=== PATIENT | female | born 1940 | race Caucasian/White ===

== ENCOUNTER 2022-09-22 15:10 | Inpatient (IN) | payer OTHER, MEDICARE ==
[~2022-09-22] VITALS: Ht 165.1 cm; Wt 71.7 kg
[~2022-09-22 15:10] MED LIST: ACET325T PO; APIX2.5T PO; ASCO500T20 PO; CELE100C PO; DILT180C67 PO; FURO-150 PO; IPRA3AMP9 INH; LACT10PA5 PO; LEVO-62 PO; MIDO5TAB4 PO; MULT-1117 PO; PANT40TA45 PO; PRED5TAB PO; VITD2000 PO
[2022-09-22 15:26] VITALS: BP_SYST 107; PULSE 83; RESP 20; TEMP 98.3; O2SAT 98
[2022-09-22] MEDS ORDERED: BENZONATATE 100 MG CAPSULE (TESSALON) PO ONE (16:45)
[2022-09-22] MEDS ORDERED: guaiFENesin/DEXTROMETHORPHAN 10 ML UDC PO ONE (16:45)
[2022-09-22 17:28] LABS: BASOPHILS % (AUTO) 0.2 % (0.0-2.0); EOSINOPHILS # (AUTO) 0.3 K/uL (0.0-0.4); EOSINOPHILS % (AUTO) 3.6 % (0.0-4.0); HEMATOCRIT 38.7 % (36-48); HEMOGLOBIN 12.7 g/dL (12.0-16.0); LYMPHOCYTES # (AUTO) 1.2 K/uL (1.0-5.5); LYMPHOCYTES % (AUTO) 14.3 % (20.5-51.5); MEAN CORPUSCULAR HEMOGLOBIN 34 pg (27-31); MEAN CORPUSCULAR HGB CONC 33 % (32-36); MEAN CORPUSCULAR VOLUME 102 fL (79.0-98.0); MONOCYTES % (AUTO) 11.7 % (1.7-9.3); NEUTROPHILS # (AUTO) 6.1 K/uL (1.8-7.7); NEUTROPHILS % (AUTO) 70.2 % (40.0-70.0); PLATELET COUNT (AUTO) 310 K/uL (130-430); RED BLOOD CELL COUNT(AUTO) 3.78 MIL/uL (4.2-6.2); RED CELL DISTRIBUTION WIDTH 13.7 % (9.0-15.0); WHITE BLOOD COUNT (AUTO) 8.6 K/uL (4.8-10.8)
[2022-09-22 17:41] LABS: INR 1.1 (0.8-1.2); PROTHROMBIN TIME 11.2 SECS (9.5-12.5)
[2022-09-22 17:42] LABS: ALANINE AMINOTRANSFERASE 21 U/L (12-78); ALBUMIN 3.4 g/dL (3.4-4.8); ANION GAP 6 (5-15); ASPARTATE AMINOTRANSFERASE 16 U/L (10-37); CHLORIDE 98 mmol/L (98-107); CREATININE 0.63 mg/dL (0.55-1.30); GLUCOSE 117 mg/dL (74-106); TOTAL BILIRUBIN 0.7 mg/dL (0.0-1.0); UREA NITROGEN, BLOOD 20 mg/dL (8-21)
[2022-09-22 18:01] LABS: BILIRUBIN,URINE NEGATIVE (NEGATIVE); BLOOD, URINE NEGATIVE (NEGATIVE); CLARITY/URINE CLEAR (CLEAR); COLOR,URINE YELLOW (YELLOW); GLUCOSE,URINE NEGATIVE (NEGATIVE); KETONES,URINE NEGATIVE (NEGATIVE); LEUKOCYTE ESTERASE ,URINE NEGATIVE (NEGATIVE); NITRITE, URINE NEGATIVE (NEGATIVE); PROTEIN URINE NEGATIVE (NEGATIVE); UROBILINOGEN,URINE 0.2 (0.2-1.0)
[2022-09-22] MEDS ORDERED: LIP10 PO (20:46)
[2022-09-22] MEDS ORDERED: POTA-195 PO (20:46)
[2022-09-22] MEDS ORDERED: LOSA25TA3 PO (20:46)
[2022-09-22] MEDS ORDERED: IPRA4AER INH (20:46)
[2022-09-22] MEDS ORDERED: ALBU1.257 IH (20:46)
[2022-09-22] MEDS ORDERED: ONDANSETRON HCL 4 MG/2 ML VIAL IVP PRN (23:15)
[2022-09-22] MEDS ORDERED: IPRATROPIUM BROM 0.5 MG/2.5 ML VIAL.NEB (ATROVENT) INH PRN (23:15)
[2022-09-22] MEDS ORDERED: LORazepam 2 MG/ML VIAL IVP PRN (23:15)
[2022-09-22] MEDS ORDERED: ACETAMINOPHEN 325 MG TABLET PO PRN (23:15)
[2022-09-22] MEDS ORDERED: HYDROcodone/ACETAMIN 5-325 MG TAB (NORCO/ VICODIN) PO PRN (23:15)
[2022-09-22] MEDS ORDERED: NALOXONE HCL 0.4 MG/ML AMP (NARCAN) IVP PRN ×2 (23:15)
[2022-09-22] MEDS ORDERED: HYDROcodone/ACETAMIN 10-325 MG TAB PO PRN (23:15)
[2022-09-22] MEDS ORDERED: ACETAMINOPHEN 325 MG TABLET PO SCH (23:15)
[2022-09-22] MEDS ORDERED: ALBUTEROL SULFATE 0.083% 2.5 MG/3 ML VIAL.NEB INH PRN (23:15)
[2022-09-22] MEDS ORDERED: levoFLOXacin 500 MG TABLET PO ONE (23:30)
[2022-09-22] MEDS ORDERED: guaiFENesin 200 MG/10 ML UDC PO ONE (23:45)
[2022-09-23] VITALS (10 sets, daily range): BP systolic 134–159; PULSE 72–93; RESP 16–19; TEMP 97.3–98.4; O2SAT 97–99
[2022-09-23 06:20] LABS: BASOPHILS % (AUTO) 0.1 % (0.0-2.0); EOSINOPHILS # (AUTO) 0.4 K/uL (0.0-0.4); EOSINOPHILS % (AUTO) 4.5 % (0.0-4.0); HEMATOCRIT 36.7 % (36-48); HEMOGLOBIN 12.2 g/dL (12.0-16.0); LYMPHOCYTES # (AUTO) 1.3 K/uL (1.0-5.5); LYMPHOCYTES % (AUTO) 16.4 % (20.5-51.5); MEAN CORPUSCULAR HEMOGLOBIN 34 pg (27-31); MEAN CORPUSCULAR HGB CONC 33 % (32-36); MEAN CORPUSCULAR VOLUME 103 fL (79.0-98.0); MONOCYTES # (AUTO) 1.1 K/uL (0.0-1.0); MONOCYTES % (AUTO) 13.8 % (1.7-9.3); NEUTROPHILS # (AUTO) 5.1 K/uL (1.8-7.7); NEUTROPHILS % (AUTO) 65.2 % (40.0-70.0); PLATELET COUNT (AUTO) 268 K/uL (130-430); RED BLOOD CELL COUNT(AUTO) 3.56 MIL/uL (4.2-6.2); RED CELL DISTRIBUTION WIDTH 13.5 % (9.0-15.0); WHITE BLOOD COUNT (AUTO) 7.9 K/uL (4.8-10.8)
[2022-09-23] MEDS: NORMAL SALINE 5 ML DISP.SYRIN IVF SCH ×3 (06:41→22:18)
[2022-09-23 06:43] LABS: ANION GAP 6 (5-15); CHLORIDE 99 mmol/L (98-107); CREATININE 0.44 mg/dL (0.55-1.30); GLUCOSE 100 mg/dL (74-106); UREA NITROGEN, BLOOD 10 mg/dL (8-21)
[2022-09-23] MEDS: LOSARTAN POTASSIUM 25 MG TABLET PO SCH (08:47)
[2022-09-23] MEDS: FUROSEMIDE 20 MG TABLET PO SCH (08:48)
[2022-09-23] MEDS: CHOLECALCIFEROL (VITAMIN D3) 2,000 UNIT TABLET PO SCH (08:48)
[2022-09-23] MEDS: ASCORBIC ACID 500 MG TABLET PO SCH (08:48)
[2022-09-23] MEDS: PANTOPRAZOLE SODIUM 40 MG TAB PO SCH (08:48)
[2022-09-23] MEDS: CELECOXIB 100 MG CAPSULE PO SCH ×2 (08:49→20:56)
[2022-09-23] MEDS: MULTIVITAMINS TAB 1 TABLET PO SCH (08:49)
[2022-09-23] MEDS: MIDODRINE HCL 5 MG TABLET (PROAMATINE) PO SCH ×4 (08:49→21:00)
[2022-09-23] MEDS: DILTIAZEM HCL 180 MG CAP.SR.24H PO SCH (08:50)
[2022-09-23] MEDS: APIXABAN 2.5 MG TABLET PO SCH ×2 (08:53→20:56)
[2022-09-23] MEDS ORDERED: predniSONE 5 MG TABLET PO SCH (09:00)
[2022-09-23] MEDS ORDERED: POTASSIUM CHLORIDE 20 MEQ/PKT PACKET PO ONE (13:00)
[2022-09-23] MEDS ORDERED: METHYLPREDNISOLONE SOD SUCC 40 MG/ML VIAL IVP ONE (14:30)
[2022-09-23] MEDS ORDERED: iohexoL 350 mgI/mL, 100 ML INFUS..BTL IV ONE (16:52)
[2022-09-23] MEDS ORDERED: methylPREDNISolone SOD SUCC/PF 62.5 MG/ML VIAL IVP ONE ×2 (17:45)
[2022-09-23] MEDS: methylPREDNISolone SOD SUCC/PF 62.5 MG/ML VIAL IVP SCH (20:55)
[2022-09-23] MEDS: ATORVASTATIN 10 MG TABLET PO SCH (20:56)
[2022-09-23] MEDS: levoFLOXacin 250 MG TABLET PO SCH (20:56)
[2022-09-23] MEDS ORDERED: METHYLPREDNISOLONE SOD SUCC 40 MG/ML VIAL IVP SCH (21:00)
[2022-09-23] MEDS: BUDESONIDE 0.5 MG/2 ML AMPUL.NEB INH SCH (21:04)
[2022-09-23] MEDS: IPRATROPIUM/ALBUTEROL SULFATE 3 ML AMPUL.NEB (DUONEB) INH PRN (21:04)
[2022-09-24] VITALS (8 sets, daily range): BP systolic 112–157; PULSE 71–101; RESP 16–20; TEMP 97.4–98.7; O2SAT 94–98
[2022-09-24] MEDS: NORMAL SALINE 5 ML DISP.SYRIN IVF SCH ×3 (06:09→20:39)
[2022-09-24] MEDS: IPRATROPIUM/ALBUTEROL SULFATE 3 ML AMPUL.NEB (DUONEB) INH PRN ×2 (07:18→20:26)
[2022-09-24] MEDS: BUDESONIDE 0.5 MG/2 ML AMPUL.NEB INH SCH ×2 (07:18→20:27)
[2022-09-24 07:59] LABS: HEMATOCRIT 37.5 % (36-48); HEMOGLOBIN 12.3 g/dL (12.0-16.0); LYMPHOCYTES # (AUTO) 0.3 K/uL (1.0-5.5); LYMPHOCYTES % (AUTO) 5.1 % (20.5-51.5); MEAN CORPUSCULAR HEMOGLOBIN 34 pg (27-31); MEAN CORPUSCULAR HGB CONC 33 % (32-36); MEAN CORPUSCULAR VOLUME 102 fL (79.0-98.0); MONOCYTES # (AUTO) 0.1 K/uL (0.0-1.0); MONOCYTES % (AUTO) 1.4 % (1.7-9.3); NEUTROPHILS # (AUTO) 4.8 K/uL (1.8-7.7); NEUTROPHILS % (AUTO) 93.5 % (40.0-70.0); PLATELET COUNT (AUTO) 296 K/uL (130-430); RED BLOOD CELL COUNT(AUTO) 3.67 MIL/uL (4.2-6.2); RED CELL DISTRIBUTION WIDTH 13.7 % (9.0-15.0); WHITE BLOOD COUNT (AUTO) 5.2 K/uL (4.8-10.8)
[2022-09-24 08:10] LABS: ANION GAP 8 (5-15); CALCIUM 9.2 mg/dL (8.4-11.0); CHLORIDE 97 mmol/L (98-107); CHOLESTEROL 198 mg/dL (<200); CREATININE 0.59 mg/dL (0.55-1.30); GLUCOSE 163 mg/dL (74-106); HDL CHOLESTEROL 123 mg/dL (>55); THYROID STIMULATING HORMONE 0.18 uIu/mL (0.34-4.82); TRIGLYCERIDES 39 mg/dL (30-150); UREA NITROGEN, BLOOD 15 mg/dL (8-21)
[2022-09-24 08:12] LABS: ERYTHROCYTE SEDIMENTATION RATE 32 MM/HR (0-20)
[2022-09-24] MEDS: FUROSEMIDE 20 MG TABLET PO SCH (08:57)
[2022-09-24] MEDS: LOSARTAN POTASSIUM 25 MG TABLET PO SCH (08:57)
[2022-09-24] MEDS: ASCORBIC ACID 500 MG TABLET PO SCH (08:59)
[2022-09-24] MEDS: CELECOXIB 100 MG CAPSULE PO SCH (09:00)
[2022-09-24] MEDS: MULTIVITAMINS TAB 1 TABLET PO SCH (09:00)
[2022-09-24] MEDS: MIDODRINE HCL 5 MG TABLET (PROAMATINE) PO SCH (09:00)
[2022-09-24] MEDS: PANTOPRAZOLE SODIUM 40 MG TAB PO SCH (09:00)
[2022-09-24] MEDS: CHOLECALCIFEROL (VITAMIN D3) 2,000 UNIT TABLET PO SCH (09:00)
[2022-09-24] MEDS: DILTIAZEM HCL 180 MG CAP.SR.24H PO SCH (09:02)
[2022-09-24] MEDS: APIXABAN 2.5 MG TABLET PO SCH ×2 (09:04→20:38)
[2022-09-24] MEDS: methylPREDNISolone SOD SUCC/PF 62.5 MG/ML VIAL IVP SCH ×2 (09:06→20:37)
[2022-09-24] MEDS ORDERED: PSYLLIUM HUSK 1 PKT PACKET PO ONE (14:15)
[2022-09-24] MEDS: levoFLOXacin 250 MG TABLET PO SCH (20:38)
[2022-09-24] MEDS: ATORVASTATIN 10 MG TABLET PO SCH (20:38)
[2022-09-24] MEDS: DOCUSATE SODIUM 100 MG CAPSULE PO SCH (20:39)
[2022-09-25] VITALS (7 sets, daily range): BP systolic 128–168; PULSE 64–102; RESP 16–20; TEMP 96.8–98.2; O2SAT 95–100
[2022-09-25] MEDS ORDERED: guaiFENesin/DEXTROMETHORPHAN 118 ML PO PRN (05:15)
[2022-09-25 05:25] LABS: ERYTHROCYTE SEDIMENTATION RATE 24 MM/HR (0-20)
[2022-09-25 05:29] LABS: HEMATOCRIT 34.5 % (36-48); HEMOGLOBIN 11.6 g/dL (12.0-16.0); LYMPHOCYTES # (AUTO) 0.2 K/uL (1.0-5.5); LYMPHOCYTES % (AUTO) 2.4 % (20.5-51.5); MEAN CORPUSCULAR HEMOGLOBIN 34 pg (27-31); MEAN CORPUSCULAR HGB CONC 34 % (32-36); MEAN CORPUSCULAR VOLUME 102 fL (79.0-98.0); MONOCYTES # (AUTO) 0.2 K/uL (0.0-1.0); MONOCYTES % (AUTO) 2.2 % (1.7-9.3); NEUTROPHILS # (AUTO) 7.4 K/uL (1.8-7.7); NEUTROPHILS % (AUTO) 95.4 % (40.0-70.0); PLATELET COUNT (AUTO) 283 K/uL (130-430); RED BLOOD CELL COUNT(AUTO) 3.38 MIL/uL (4.2-6.2); RED CELL DISTRIBUTION WIDTH 13.9 % (9.0-15.0); WHITE BLOOD COUNT (AUTO) 7.8 K/uL (4.8-10.8)
[2022-09-25 05:50] LABS: ALANINE AMINOTRANSFERASE 16 U/L (12-78); ALBUMIN 3.1 g/dL (3.4-4.8); ANION GAP 9 (5-15); ASPARTATE AMINOTRANSFERASE 11 U/L (10-37); CALCIUM 8.8 mg/dL (8.4-11.0); CHLORIDE 97 mmol/L (98-107); GLUCOSE 169 mg/dL (74-106); TOTAL BILIRUBIN 0.3 mg/dL (0.0-1.0); UREA NITROGEN, BLOOD 20 mg/dL (8-21)
[2022-09-25] MEDS ORDERED: guaiFENesin/DEXTROMETHORPHAN 10 ML UDC PO PRN (08:00)
[2022-09-25] MEDS ORDERED: PSYLLIUM HUSK 1 PKT PACKET PO SCH (09:00)
[2022-09-25] MEDS: PANTOPRAZOLE SODIUM 40 MG TAB PO SCH (09:12)
[2022-09-25] MEDS: MULTIVITAMINS TAB 1 TABLET PO SCH (09:13)
[2022-09-25] MEDS: DILTIAZEM HCL 180 MG CAP.SR.24H PO SCH (09:14)
[2022-09-25] MEDS: DOCUSATE SODIUM 100 MG CAPSULE PO SCH (09:14)
[2022-09-25] MEDS: ASCORBIC ACID 500 MG TABLET PO SCH (09:15)
[2022-09-25] MEDS: LOSARTAN POTASSIUM 25 MG TABLET PO SCH (09:15)
[2022-09-25] MEDS: FUROSEMIDE 20 MG TABLET PO SCH (09:16)
[2022-09-25] MEDS: CHOLECALCIFEROL (VITAMIN D3) 2,000 UNIT TABLET PO SCH (09:17)
[2022-09-25] MEDS: APIXABAN 2.5 MG TABLET PO SCH (09:21)
[2022-09-25] MEDS: NORMAL SALINE 5 ML DISP.SYRIN IVF SCH ×2 (09:25→14:00)
[2022-09-25] MEDS: methylPREDNISolone SOD SUCC/PF 62.5 MG/ML VIAL IVP SCH (09:25)
[2022-09-25] MEDS: IPRATROPIUM/ALBUTEROL SULFATE 3 ML AMPUL.NEB (DUONEB) INH PRN (12:57)
[2022-09-25] MEDS: BUDESONIDE 0.5 MG/2 ML AMPUL.NEB INH SCH (12:58)
[2022-09-25] MEDS ORDERED: PRED10TA PO (16:46)
[2022-09-25] MEDS ORDERED: PRED20TA PO (16:46)
== END 2022-09-25 19:10 | disposition home health service (06) | DRG 189 ==
LOC: SED 15:10 → STU 20:27 → SMU 09-23 02:40 → STU 09-23 02:40 → SMU 09-25 12:29
PROVIDERS: ADMIT Preventive Medicine Preventive Medicine/Occupational Environmental Medicine; ATTEND Preventive Medicine Preventive Medicine/Occupational Environmental Medicine
DX: J96.21 Acute and chronic respiratory failure with hypoxia (principal); J44.1 Chronic obstructive pulmonary disease with (acute) exacerbation; N39.0 Urinary tract infection, site not specified; I24.8 Other forms of acute ischemic heart disease; G93.1 Anoxic brain damage, not elsewhere classified; J06.9 Acute upper respiratory infection, unspecified; I25.10 Atherosclerotic heart disease of native coronary artery without angina pectoris; K21.9 Gastro-esophageal reflux disease without esophagitis; I11.0 Hypertensive heart disease with heart failure; E87.6 Hypokalemia; E55.9 Vitamin D deficiency, unspecified; I48.0 Paroxysmal atrial fibrillation; R53.81 Other malaise; Z96.653 Presence of artificial knee joint, bilateral; Z20.822 Contact with and (suspected) exposure to COVID-19; I50.9 Heart failure, unspecified; G40.909 Epilepsy, unspecified, not intractable, without status epilepticus; Z88.0 Allergy status to penicillin; Z79.899 Other long term (current) drug therapy; Z79.01 Long term (current) use of anticoagulants; Z99.81 Dependence on supplemental oxygen; Z90.710 Acquired absence of both cervix and uterus; Z87.891 Personal history of nicotine dependence; Z86.74 Personal history of sudden cardiac arrest; J20.9 Acute bronchitis, unspecified
CPT/HCPCS: 36415; 71046-TC; 71250-TC; 76376; 80048; 80053; 80061; 81003; 83605; 83880; 84443; 84484; 85025; 85379; 85610-TC; 85651-TC; 85730-TC; 87040; 87086; 87420; 93005; 93306; 94640; 94760; 97116-GP; 97530-GP; 99285; G0378; J1030; J2930; J7512; J7613; J7626; Q9967